=== PATIENT | male | born 1975 | race Caucasian/White ===

== ENCOUNTER → 2021-10-17 | Day surgery (SDC) | payer OTHER ==
[~2021-10-17] MED LIST: CRESTOR20 MG PO; LISINOPRIL10 MG PO; MULTI VITAMIN1 EACH PO
[2021-10-17 07:04] LABS: CALCIUM 8.6 mg/dL (8.5-10.1); CREATININE 1.1 mg/dL (0.6-1.3)
[2021-10-17 07:08] LABS: ALBUMIN 4.1 g/dL (3.4-5.0); TOTAL BILIRUBIN 1.4 mg/dL (<0.1-1.0); TOTAL PROTEIN 7.8 g/dL (6.4-8.2)
--- NOTE | 2021-10-17 15:29 | EKG ---
[place] [address] ELECTROCARDIOGRAM REPORT Name: LEONEL MILLIGAN Room: [facility]#: [id number] Admission: 10/17/21 Attend Phys: Charles Rush Discharge: Date of : 79 Date of Service: 10/17/21651 Report #: [id number] THIS REPORT FOR: //name// [facility] Test Date: 2021-10-17 Test Time: 06:52:50 Pat Name: LEONEL MILLIGAN Department: Room: Gender: Shearer Helper: : 1975 Requested By: Charles Sarmiento Order Number: [id number] Reading MD: Leonel Chavez Measurements Intervals [place] Rate: 71 P: 38 TX: 154 QRS: 17 QRSD: 109 T: 2 QT: 389 QTc: 423 Interpretive Statements Sinus rhythm Probable left ventricular hypertrophy No previous ECG available for comparison Electronically Signed On 10-17-2021 15:29:00 COMMERCIAL ESTIMATOR by Leonel Chavez [email or web address] <ELECTRONICALLY SIGNED> By: Leonel Chavez MD, [facility] 10/17/21 1529 Leonel Chavez MD, FACC /EPI
--- NOTE | 2021-10-21 10:07 | PATH ---
[facility] [address] [place] [address] PATHOLOGY RPT PROCEDURE Name: KENTON MILLIGAN FABRICIO Room: [facility].#: [id number] Admission: 10/17/21 Date of : 79 Discharge: Report #: [id number] Path Case #: [id number] [facility] Accession Number: [id number] . 01 Material submitted: . gallbladder - GALLBLADDER WITH CONTENTS . 01 Clinical history: . CALCULUS OF GALLBLADDER LAPAROSCOPIC CHOLECYSTECTOMY . 02 Diagnosis: Gallbladder: - Chronic cholecystitis with cholesterolosis. See comment. (SIDNEY:shailesh; 10/20/2020) S 10/20/2021 1512 Local . 02 Comment: No gallstones were identified in the submitted specimen. (SIDNEY:shailesh; 10/20/2021) . 02 Electronically signed: . Steven Stokes MD, Pathologist NPI- [id number] . 01 Gross description: . Fixative: Formalin Labeled: Gallbladder with contents Specimen received: Previously opened cholecystectomy Dimensions: 7.2 x 3.1 x 1.8 cm Serosa: Kelly-green and smooth and received previously opened at the cystic duct margin Lymph node: Not present Mucosa: Dark green and velvety Average wall thickness: 0.1-0.2 cm Calculi: None identified within the gallbladder or formalin within the container (which is strained) Abnormalities: None identified A1- Associate Professor body, fundus, and the cystic duct margin. ([facility]; 10/18/2021) [facility] 10/18/2021 1002 Local . 02 Pathologist provided ICD-10: K81.1, K82.4 . 02 CPT . 178498 Specimen Comment: A courtesy copy of this report has been sent to [phone] [address] PATHOLOGY RPT PROCEDURE Name: KENTON MILLIGAN Room: [facility]#: [id number] Admission: 10/17/21 Date of : 79 Discharge: Report #: [id number] Path Case #: [id number] Specimen Comment: 0015 Specimen Comment: Report sent to / DR WALLER Specimen Comment: A duplicate report has been generated due to demographic updates. Performed at: [address], [place] [id number] MD José Luis Prince MD Phone: [phone] Performed at: 02 [facility] [address], [place], [place] [id number] MD Steven Stokes MD Phone: [phone]
--- NOTE | 2021-10-24 09:22 | OP ---
[facility] [address] [place] [address] OPERATIVE REPORT Name: KENTON MILLIGAN Room: [facility].#: [id number] Admission: 10/17/21 Attend Phys: Charles Sarmiento Discharge: Date of : 79 Report #: [id number] THIS REPORT FOR: cc: Iglesia Aleman MD, Louis A. MD Patterson, Jonathan D. MD ~ DATE OF SURGERY: 10/17/2021 PREOPERATIVE DIAGNOSIS: Biliary dyskinesia. POSTOPERATIVE DIAGNOSIS: Biliary dyskinesia. OPERATION: Laparoscopic cholecystectomy. SURGEON: Charles Sarmiento MD. ANESTHESIA: General. ESTIMATED BLOOD LOSS: Minimal. SPECIMENS: Gallbladder. DESCRIPTION OF PROCEDURE: After informed consent was obtained, the patient was brought to the operating room and placed supine. SCDs were placed and working, preoperative antibiotics were administered, general anesthesia was induced. The abdomen was prepped and draped in the usual sterile fashion. A 10 mm incision was made below the umbilicus. Fascia was incised and a trocar was placed. Pneumoperitoneum was established. Three right upper quadrant 5 mm ports were placed. Gallbladder was grasped at the fundus and retracted cephalad. Infundibulum was grasped and retracted laterally. I dissected out the cystic duct and the cystic artery. The cystic plate was identified. The cystic duct and artery were clipped and ligated leaving 2 clips on the remaining duct and 1 on the remaining artery. Gallbladder was then taken off the liver bed with electrocautery. It was placed into an Endopouch and removed. Fascia was then closed with a [id number] 0 Vicryl. Skin was closed with 4-0 Monocryl. Incisions were dressed with Steri-Strips. COMPLICATIONS: None. DISPOSITION: The patient was taken to recovery in satisfactory condition. <ELECTRONICALLY SIGNED> By: Charles Sarmiento MD 10/24/21 0922 [id number] [id number] Sarmiento MD /nt
== END | disposition home or self-care (01) ==
LOC: M.SUR 09-30 05:21
PROVIDERS: ATTEND Surgery
DX: K81.1 Chronic cholecystitis (principal); R10.11 Right upper quadrant pain; Z98.890 Other specified postprocedural states; Z79.899 Other long term (current) drug therapy; Z20.822 Contact with and (suspected) exposure to COVID-19; Z88.0 Allergy status to penicillin; Z88.2 Allergy status to sulfonamides; Z88.8 Allergy status to other drugs, medicaments and biological substances